=== PATIENT | female | born 1995 | race Caucasian/White ===

== ENCOUNTER 2018-06-19 21:57 | Emergency (ER) | payer MEDICAID ==
[~2018-06-19] VITALS: Ht 162.6 cm; Wt 59.0 kg
[2018-06-19] MEDS ORDERED: Bactrim Ds Tab1 EACH PO (23:58)
[2018-06-19] MEDS ORDERED: IBUP800 PO (23:58)
[2018-06-19] MEDS ORDERED: CEPH500 PO (23:58)
== END 2018-06-20 00:09 | disposition home or self-care (01) ==
LOC: ER 21:57
DX: L03.113 Cellulitis of right upper limb (principal)
CPT/HCPCS: 99283

== ENCOUNTER 2018-12-24 19:51 | Emergency (ER) | payer SELFPAY ==
[~2018-12-24] VITALS: Ht 162.6 cm; Wt 59.0 kg
[~2018-12-24 19:51] MED LIST: Bactrim Ds Tab1 EACH PO; CEPH500 PO; IBUP800 PO; Valtrex1000 MG PO
[2018-12-24 20:25] LABS: Source, Urine Clean Catch
[2018-12-24 20:27] LABS: Blood, Urine 2+ (Neg); Glucose Qualitative, Urine Neg (Neg); Ketones, Urine Neg (Neg); Leukocyte Esterase, Urine 3+ (Neg); Nitrite, Urine Pos (Neg); Protein, Urine 2+ (Neg); Specific Gravity, Urine 1.015 (1.003-1.022); Urobilinogen, Urine 3+ (Normal); pH, Urine 6.5 (5.0-8.0)
[2018-12-24 20:39] LABS: Appearance, Urine Hazy (Clear); Bilirubin, Urine 3+ (Neg); Color, Urine Amber (P-Yellow)
[2018-12-24 20:40] LABS: Red Blood Cells, Urine 25-50 /hpf (0-2); White Blood Cells, Urine 50-100 /hpf (0-5)
[2018-12-24 20:41] LABS: Bacteria Many /hpf; Squamous Epithelial Cells Few /hpf (Few)
[2018-12-24] MEDS ORDERED: Pyridium100 MG PO (20:55)
[2018-12-24] MEDS ORDERED: CEPH500 PO (20:55)
== END 2018-12-24 21:05 | disposition home or self-care (01) ==
LOC: ER 19:51
PROVIDERS: Physician Assistant
DX: N39.0 Urinary tract infection, site not specified (principal)
CPT/HCPCS: 81001; 81025; 87077; 87086; 87186; 99283